=== PATIENT | male | born 1970 | race Two or more races ===

== ENCOUNTER 2024-08-01 19:37 | Emergency (ER) | payer OTHER ==
[~2024-08-01] VITALS: Ht 177.8 cm; Wt 86.2 kg
[2024-08-01 19:59] VITALS: BP 144/89; O2SAT 100
[2024-08-01] MEDS ORDERED: ZYLOPRIM100 M1 (20:00)
== END 2024-08-01 23:15 | disposition home or self-care (01) ==
LOC: ER 19:39
DX: S09.8XXA Other specified injuries of head, initial encounter (principal); W18.39XA Other fall on same level, initial encounter; Y93.89 Activity, other specified; Y92.89 Other specified places as the place of occurrence of the external cause; M10.9 Gout, unspecified